=== PATIENT | female | born 1980 | race Caucasian/White ===

== ENCOUNTER 2016-04-25 16:34 | Observation (INO) | payer OTHER ==
[2016-04-25] MEDS ORDERED: VANCOMYCIN HCL/NORMAL SALINE 250 ML IV ONE (17:40)
--- NOTE | 2016-04-25 17:43 | EDPHY ---
H & P Stated Complaint: infected finger - Personal History LMP (Females 10-55): 8-14 Days Ago Current Tetanus/Diphtheria Vaccine: Yes Current Tetanus Diphtheria and Acellular Pertussis (TDAP): Yes - Medical/Surgical History Hx Asthma: No Hx Chronic Respiratory Disease: No Hx Diabetes: No Hx Cardiac Disease: No Hx Renal Disease: Yes Hx Cirrhosis: No Hx Alcoholism: No Hx HIV/AIDS: No Hx Splenectomy or Spleen Trauma: No Other PMH: HTN, L nephrectomy - Social History Smoking Status: Former smoker Time Seen by Provider: 04/25/16 17:30 HPI/ROS: CHIEF COMPLAINT: Possible infected finger HISTORY OF PRESENT ILLNESS: 36-year-old immunocompetent [id number] female with up-to-date complaining of 2 days of left middle digit pain, swelling. She notes a puncture wound of the distal phalanx of same digit. She went to urgent care and was told to come to the ER for further evaluation. She notes inability to flex, swelling, pain along the flexor aspect. No prior history of similar. No known history of MRSA or cutaneous infections. Denies: Fever, chills, nausea, vomiting, flu-like symptoms. Last oral intake was at 3:30 p.m. REVIEW OF SYSTEMS: A ten point review of systems was performed and is negative with the exception of the items mentioned in the HPI PAST MEDICAL & SURGICAL HISTORY: No pertinent medical or surgical history SOCIAL HISTORY: nonsmoker PHYSICAL EXAM (Prior to examination, patient consented to physical exam, hands were washed and my usual and customary physical exam procedures followed) 1) GENERAL: Well-developed, well-nourished, alert and oriented. Appears nontoxic . 2) HEAD: Normocephalic, atraumatic 3) HEENT: Sclera anicteric. 4) NECK: Full range of motion, no meningeal signs. 5) LUNGS: Clear auscultation bilaterally, no wheezes, no rhonchi, no retractions. 6) HEART: Regular rate and rhythm, no murmur, no heave, no gallop. 7) ABDOMEN: No guarding, no rebound, no focal tenderness, 8) MUSCULOSKELETAL: left upper extremity: Patient's left middle digit is swollen with fusiform shape, flexed, tender along flexor tendon sheath, pain with passive Flexion andextension. the distal phalanx there is a puncture wound the paronychial region. The hand has soft compartments with no crepitus and no lymphangitic streaking. 9) BACK: no visual or palpable abnormality. 10) SKIN: No rash, no petechiae. DIFFERENTIAL DIAGNOSIS: in no particular include but limited to osteomyelitis , cellulitis, infectious tenosynovitis (Robert Rodriguez) Constitutional: Initial Vital Signs Temperature (C) 36.6 C 04/25/16 16:36 Heart Rate 100 04/25/16 16:36 Respiratory Rate 16 04/25/16 16:36 Blood Pressure 110/80 04/25/16 16:36 O2 Sat (%) 96 04/25/16 16:36 O2 Delivery Mode Room Air Allergies/Adverse Reactions: No Known Allergies Allergy (Verified 04/25/16 18:59) Home Medications: Medication Instructions Recorded Cholecalciferol Vit D3 [Vitamin D3 1,000 units PO DAILY 04/25/16 (*)] Dextroamphetamine/Amphetamine 10 mg PO DAILY@16 04/25/16 [Dextroamp-Amphetamin 20 mg Tab] Dextroamphetamine/Amphetamine 20 mg PO DAILY 04/25/16 [Dextroamp-Amphetamin 20 mg Tab] Levonorgestrel-Ethin Estradiol 1 each PO DAILY 04/25/16 [Aviane] Lisinopril [Zestril 20 mg (*)] 20 mg PO DAILY 04/25/16 Sertraline HCl [Zoloft 100mg (*)] 100 mg PO DAILY 04/25/16 Medical Decision Making ED Course/Re-evaluation: 5:40 p.m.: This [id number] female has a left middle digit with positive kanavel sign, concern over infectious tenosynovitis. She is noted to have a puncture wound of the distal phalanx which may be the nidus of infection. The patient has also been seen exam by Dr. Floridalma Hancock in the ER. Hand surgery will be the paged, x-ray, IV antibiotics will be obtained. 6:43 p.m.: Phone consultation with Dr. Edward Bobby on-call hand surgery who will contact the operating room (Robert Rodriguez) Other Provider: I have evaluated and participated in the management of this patient. My co- signature indicates that I have reviewed this chart and that I agree with the findings and the plan of care as documented. My personal history and physical findings include: Pain and swelling of the left long finger that began yesterday. No known trauma. On examination there is a collection of purulence along the medial peritoneal fold. The entire left long digit is swollen, fusiform. There is tenderness with palpation of the flexor tendon sheath. She has pain with any attempt to flex or extend this digit. This appears to be an infectious tenosynovitis. She is being taken to the operating room by Dr. Bobby. (Floridalma Hancock) - Data Points Laboratory Results: Laboratory Results 04/25/16 18:00 04/25/16 18:00 04/25/16 18:00 WBC 14.06 H 10^3/uL (3.80-9.50) RBC 3.90 L 10^6/uL (4.18-5.33) Hgb 13.0 g/dL (12.6-16.3) Hct 36.2 L % (38.0-47.0) MCV 92.8 fL (81.5-99.8) MCH 33.3 pg (27.9-34.1) MCHC 35.9 g/dL (32.4-36.7) RDW 12.2 % (11.5-15.2) Plt Count 216 10^3/uL (150-400) MPV 9.2 fL (8.7-11.7) Neut % (Auto) 82.7 H % (39.3-74.2) Lymph % (Auto) 8.0 L % (15.0-45.0) [place]oll[place] % (Auto) 7.9 % (4.5-13.0) Eos % (Auto) 0.6 % (0.6-7.6) Baso % (Auto) 0.4 % (0.3-1.7) Nucleat RBC Rel Count 0.0 % (0.0-0.2) Absolute Neuts (auto) 11.61 H 10^3/uL (1.70-6.50) Absolute Lymphs (auto) 1.13 10^3/uL (1.00-3.00) Absolute Monos (auto) 1.11 H 10^3/uL (0.30-0.80) Absolute Eos (auto) 0.09 10^3/uL (0.03-0.40) Absolute Basos (auto) 0.06 10^3/uL (0.02-0.10) Absolute Nucleated RBC 0.00 10^3/uL (0-0.01) Immature Gran % 0.4 % (0.0-1.1) Immature Gran # 0.06 10^3/uL (0.00-0.10) Sodium 135 mEq/L (134-144) Potassium 4.2 mEq/L (3.5-5.2) Chloride 102 mEq/L (97-110) Carbon Dioxide 16 L mEq/l (22-31) Anion Gap 17 mEq/L (8-16) BUN 17 mg/dL (7-23) Creatinine 1.0 mg/dL (0.6-1.0) Estimated GFR > 60 Glucose 97 mg/dL (70-100) Calcium 9.2 mg/dL (8.5-10.4) Beta HCG, Qual NEGATIVE Medications Given: Discontinued Medications Vancomycin/Sodium Chloride (Vancomycin 1 Gm (Premix)) 250 mls @ 250 mls/hr IV EDNOW ONE PRN Reason: Protocol Stop: 04/25/16 18:39 Last Admin: 04/25/16 18:46 Dose: 250 mls Departure - Departure Disposition: [facility] Inpatient Acute Clinical Impression: Infectious tenosynovitis Condition: Fair
[2016-04-25 18:10] LABS: % IMMATURE GRANULYOCYTES 0.4 % (0.0-1.1); ABSOLUTE IMMATURE GRANULOCYTES 0.06 10^3/uL (0.00-0.10); ADD DIFF? NO; ADD MORPH? NO; ADD SCAN? NO; ATYPICAL LYMPHOCYTE FLAG 10 (0-99); FRAGMENT RBC FLAG 0 (0-99); HEMATOCRIT 36.2 % (38.0-47.0); LEFT SHIFT FLG 0 (0-99); LIPEMIA HEMOLYSIS FLAG 90 (0-99); MEAN CELL HEMOGLOBIN 33.3 pg (27.9-34.1); MEAN CELL HEMOGLOBIN CONCENTR. 35.9 g/dL (32.4-36.7); MEAN CELL VOLUME 92.8 fL (81.5-99.8); MEAN PLATELET VOLUME 9.2 fL (8.7-11.7); PLATELET CLUMPS FLAG 0 (0-99); PLATELET COUNT 216 10^3/uL (150-400); RED CELL DISTRIBUTION WIDTH 12.2 % (11.5-15.2)
[2016-04-25 18:27] LABS: ANION GAP 17 mEq/L (8-16); CALCIUM 9.2 mg/dL (8.5-10.4); CARBON DIOXIDE 16 mEq/l (22-31); CHLORIDE 102 mEq/L (97-110); GLOMERULAR FILTRATION RATE > 60; GLUCOSE 97 mg/dL (70-100); POTASSIUM 4.2 mEq/L (3.5-5.2); SODIUM 135 mEq/L (134-144)
--- NOTE | 2016-04-25 18:34 | DX ---
3 Views Left Hand Clinical Indications: Infection left 3rd digit for 2 days in a 36-year-old female. Comparison: No previous studies are available for comparison. Findings: A fracture or other acute osseous abnormality is not identified. The bone alignment is nor mal. Mild soft tissue swelling is noted involving the 3rd digit. No soft tissue air is seen and no ra diopaque foreign body is identified. Impression: Negative for acute osseous abnormality, soft tissue air or radiopaque foreign body.
[2016-04-25] MEDS ORDERED: ONDANSETRON 4 MG/2 ML VIAL ONE (19:42)
[2016-04-25] MEDS ORDERED: ROCURONIUM 50 MG/5 ML VIAL ONE (19:42)
[2016-04-25] MEDS ORDERED: LIDOCAINE 2% 5 ML SDV ONE (19:42)
[2016-04-25] MEDS ORDERED: DEXAMETHASONE 4 MG/ML VIAL ONE (19:42)
[2016-04-25] MEDS ORDERED: KETOROLAC 30 MG/1 ML SDV ONE (19:42)
[2016-04-25] MEDS ORDERED: PROPOFOL 200 MG/20 ML VIAL ONE (19:43)
[2016-04-25] MEDS ORDERED: fentaNYL 100 MCG/2 ML INJ ONE ×3 (19:43→21:48)
--- NOTE | 2016-04-25 19:46 | PDGENHP ---
History and Physical - Chief Complaint Left 3rd finger pain x 2 days - History of Present Illness 36y/o F presents to the ED c/o L 3rd finger pain x 2 days. Pt states she woke up yesterday morning with the tip of her 3rd finger swollen. The finger has continued to get more painful and swollen. Pt has trouble bending her 3rd finger. Pt states there is a small abrasion at the distal tip, but did not notice it before the finger became swollen. 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 Pt states she has [place] been [place] the [place] in about 1 week. Pt denies fever, chills, nausea, vomiting, drainage from the finger, numbness and tingling. History Information - Allergies/Home Medication List Allergies/Adverse Reactions: No Known Allergies Allergy (Verified 04/25/16 18:59) Home Medications: Cholecalciferol Vit D3 [Vitamin D3 (*)] 1,000 units PO DAILY 04/25/16 [Last Taken 04/25/16] Dextroamphetamine/Amphetamine [Dextroamp-Amphetamin 20 mg Tab] 10 mg PO DAILY@ 16 04/25/16 [Last Taken 04/25/16] Dextroamphetamine/Amphetamine [Dextroamp-Amphetamin 20 mg Tab] 20 mg PO DAILY [Last Taken 04/25/16] Levonorgestrel-Ethin Estradiol [Aviane] 1 each PO DAILY 04/25/16 [Last Taken ] Lisinopril [Zestril 20 mg (*)] 20 mg PO DAILY 04/25/16 [Last Taken 04/25/16] Sertraline HCl [Zoloft 100mg (*)] 100 mg PO DAILY 04/25/16 [Last Taken 04/25/16] I have personally reviewed and updated: family history, medical history, social history, surgical history - Surgical History Additional surgical history: Bilateral bunionectomy, 1 kidney removed at age 9 - Family History Positive for: CAD, hypertension - Social History Smoking Status: Former smoker Review of Systems ROS: 10pt was reviewed & negative except for what was stated in HPI & below Physical Exam Temp Pulse Resp BP Pulse Ox 36.6 C 100 16 110/80 96 04/25/16 16:36 04/25/16 16:36 04/25/16 16:36 04/25/16 16:36 04/25/16 16:36 Constitutional: no apparent distress, appears nourished Ears, Nose, Mouth, Throat: moist mucous membranes Skin: warm, erythema, other (Diffuse erythema of the L 3rd digit and edema; small abrasion with surrounding ecchymosis at the medial distal tip) Musculoskeletal: pain with ROM, other (Decreased flexion and strength of the L 3rd finger) Neurologic: AAOx3, sensation intact bilaterally, No numbness Psychiatric: interacting appropriately, anxious Lymph, Heme, Immunologic: no cervical LAD Lab Data & Imaging Review 04/25/16 18:00 04/25/16 18:00 WBC 14.06 10^3/uL (3.80-9.50) H 04/25/16 18:00 RBC 3.90 10^6/uL (4.18-5.33) L 04/25/16 18:00 Hgb 13.0 g/dL (12.6-16.3) 04/25/16 18:00 Hct 36.2 % (38.0-47.0) L 04/25/16 18:00 MCV 92.8 fL (81.5-99.8) 04/25/16 18:00 MCH 33.3 pg (27.9-34.1) 04/25/16 18:00 MCHC 35.9 g/dL (32.4-36.7) 04/25/16 18:00 RDW 12.2 % (11.5-15.2) 04/25/16 18:00 Plt Count 216 10^3/uL (150-400) 04/25/16 18:00 MPV 9.2 fL (8.7-11.7) 04/25/16 18:00 Neut % (Auto) 82.7 % (39.3-74.2) H 04/25/16 18:00 Lymph % (Auto) 8.0 % (15.0-45.0) L 04/25/16 18:00 [place] % (Auto) 7.9 % (4.5-13.0) 04/25/16 18:00 Eos % (Auto) 0.6 % (0.6-7.6) 04/25/16 18:00 Baso % (Auto) 0.4 % (0.3-1.7) 04/25/16 18:00 Nucleat RBC Rel Count 0.0 % (0.0-0.2) 04/25/16 18:00 Absolute Neuts (auto) 11.61 10^3/uL (1.70-6.50) H 04/25/16 18:00 Absolute Lymphs (auto) 1.13 10^3/uL (1.00-3.00) 04/25/16 18:00 Absolute Monos (auto) 1.11 10^3/uL (0.30-0.80) H 04/25/16 18:00 Absolute Eos (auto) 0.09 10^3/uL (0.03-0.40) 04/25/16 18:00 Absolute Basos (auto) 0.06 10^3/uL (0.02-0.10) 04/25/16 18:00 Absolute Nucleated RBC 0.00 10^3/uL (0-0.01) 04/25/16 18:00 Immature Gran % 0.4 % (0.0-1.1) 04/25/16 18:00 Immature Gran # 0.06 10^3/uL (0.00-0.10) 04/25/16 18:00 Sodium 135 mEq/L (134-144) 04/25/16 18:00 Potassium 4.2 mEq/L (3.5-5.2) 04/25/16 18:00 Chloride 102 mEq/L (97-110) 04/25/16 18:00 Carbon Dioxide 16 mEq/l (22-31) L 04/25/16 18:00 Anion Gap 17 mEq/L (8-16) 04/25/16 18:00 BUN 17 mg/dL (7-23) 04/25/16 18:00 Creatinine 1.0 mg/dL (0.6-1.0) 04/25/16 18:00 Estimated GFR > 60 04/25/16 18:00 Glucose 97 mg/dL (70-100) 04/25/16 18:00 Calcium 9.2 mg/dL (8.5-10.4) 04/25/16 18:00 Beta HCG, Qual NEGATIVE 04/25/16 18:00 Imaging Review: No signs of fracture, dislocation, or osteomyelitis Assessment & Plan Assessment: Infectious tenosynovitis (Acute) Plan: Pt will be taken to the OR for incision, drainage, and debridement of the left 3rd finger and tendon sheath. Pt will be admitted to orthopedics and infectious disease will be consulted for further antibiotic management.
[2016-04-25] MEDS ORDERED: ceFAZolin 2 GM/DEXTROSE 100 ML IV ONE (20:10)
[2016-04-25] MEDS ORDERED: MIDAZOLAM 2 MG/2 ML VIAL ONE ×2 (20:23→21:59)
[2016-04-25] MEDS ORDERED: SUCCINYLCHOLINE CHLORIDE*ANESTHESIA ONLY*200 MG/10 ML SYR IVP ONE (20:26)
[2016-04-25] MEDS ORDERED: ceFAZolin 1 GM VIAL ONE ×2 (20:52)
[2016-04-25] MEDS ORDERED: SUGAMMADEX SODIUM 200 MG/2 ML VIAL IVP ONE (20:57)
[2016-04-25] MEDS ORDERED: POLYMYXIN B SULFATE 500,000 UNIT/10 ML SYR IRR ONE (21:01)
[2016-04-25] MEDS ORDERED: BACITRACIN 50,000 UNITS/10 ML SYR IRR ONE (21:01)
[2016-04-25] MEDS ORDERED: EPINEPHrine RACEMIC INH 0.5 ML DEYVIAL IH ONE (21:56)
[2016-04-25] MEDS ORDERED: ceFAZolin 2 GM/DEXTROSE 100 ML IV SCH (22:00)
--- NOTE | 2016-04-25 22:02 | GOP ---
[f rep st] OPERATIVE REPORT DATE OF OPERATION: 04/25/2016 SURGEON: Edward Bobby MD DEAN OF INSTRUCTION: Sophie Saleem PA-C. ANESTHESIA: General. PREOPERATIVE DIAGNOSIS: 1. Left 3rd finger felon. 2. Left 3rd finger flexor tendon sheath abscess. POSTOPERATIVE DIAGNOSIS: 1. Left 3rd finger felon. 2. Left 3rd finger flexor tendon sheath abscess. PROCEDURE PERFORMED: 1. Incision and drainage of left 3rd finger felon. 2. Incision and drainage of left 3rd finger flexor tendon purulent tenosynovitis. FINDINGS: DESCRIPTION OF PROCEDURE: The patient was taken to the operating room, administered general anesthes ia, and placed in the supine position. The left upper extremity was prepped and draped in the normal sterile fashion. Esmarch was started at the wrist level and went up to the brachium. The brachial cuff was elevated to 225 mmHg pressure. An incision was made distally over the volar aspect of the i nterphalangeal joint in a Venancio fashion. This was carried through dermal subcutaneous tissues. Bl unt spreading was performed down to the level of the tendon sheath. An incision was then made at the palm level over the A1 terry. It was carried through the dermal and subcutaneous tissues. The ten don sheath was opened at both ends. Purulent fluid exuded. Cultures were taken. A pediatric feedin g tube was then fed down through the tendon sheath. Approximately 300 cc of bacitracin/polymyxin erasto ution was passed through the pediatric feeding tube to irrigate the tendon sheath. We subsequently i ncised the felon. We bluntly spread through the felon down to the level of the distal incision. Mor e purulent fluid exuded. This was thoroughly lavaged. We then placed a pediatric feeding tube throu gh the felon incision into the distal interphalangeal incision. This area was irrigated with copious amounts of normal saline. An iodoform gauze drain was placed into the incision in the distal finger tip and into the palmar area. We subsequently applied a sterile compression dressing and volar spli nt. The patient tolerated the procedure well and was transferred back to the recovery room in stable condition. No operative complications. COMPLICATIONS: None. /[id number]/MODL
[2016-04-25] MEDS ORDERED: ONDANSETRON DISINTEGRATING 4 MG TAB PO PRN (22:43)
[2016-04-25] MEDS ORDERED: ONDANSETRON 4 MG/2 ML VIAL IVP PRN (22:43)
[2016-04-25] MEDS ORDERED: CYCLOBENZAPRINE 10 MG TAB PO PRN (22:44)
[2016-04-25] MEDS ORDERED: DIPHENOXYLATE/ATROPINE LOMOTIL 1 TAB PO PRN (22:44)
[2016-04-25] MEDS ORDERED: PROMETHAZINE HCL 25 MG/ML VIAL IVP PRN (22:44)
[2016-04-25] MEDS ORDERED: diphenhydrAMINE 25 MG CAP PO PRN (22:44)
[2016-04-25] MEDS ORDERED: TEMAZEPAM 15 MG CAP PO PRN (22:44)
[2016-04-25] MEDS ORDERED: PROMETHAZINE HCL 25 MG SUPPR PR PRN (22:44)
[2016-04-25] MEDS ORDERED: NS 1,000 ML IV SCH (22:45)
[2016-04-26] MEDS: ACETAMINOPHEN 325 MG TAB PO SCH ×5 (00:05→23:37)
[2016-04-26] MEDS: FAMOTIDINE 20 MG TAB PO SCH ×3 (00:06→21:17)
[2016-04-26] MEDS: OXYCODONE/APAP 5/325 TAB PO PRN ×4 (05:51→23:33)
[2016-04-26] MEDS: ceFAZolin 2 GM/DEXTROSE 100 ML IV SCH ×3 (06:19→21:16)
[2016-04-26] MEDS: ADDERALL 20 MG TAB PO SCH (08:28)
[2016-04-26] MEDS: LISINOPRIL 20 MG TAB PO SCH (08:28)
[2016-04-26] MEDS: SERTRALINE HCL 100 MG TAB PO SCH (08:28)
[2016-04-26] MEDS: LEVONORGESTREL ETHIN ESTRADIOL PO SCH (08:33)
--- NOTE | 2016-04-26 09:43 | SOAPPROG ---
SOAP Progress Note Assessment/Plan: Assessment/Plan: 36y/o F s/p incision and drainage of the L 3rd finger felon and L 3rd finger tendon purulent tenosynovitis POD#1 - Iodoform gauze drain removed today - Continue pain management - SCDs in place while in bed - Continue to elevate and ice the LUE for pain and swelling - Will consult infectious disease for antibiotic recommendation as outpatient - Culture and gram stain still pending - Okay for discharge once plan is established with ID - Will need to follow-up with Dr. Bobby in clinic 10-14 days postoperatively 04/26/16 09:38 04/26/16 09:44 Subjective: Pt states her finger is in less pain this morning than pre-operatively. She has been keeping it elevated and iced with some relief. Pt has been up and out of bed. Pt denies fever, chills, chest pain, SOB, N/V, calf pain, numbness and tingling. Objective: VSS, afebrile, sitting up in bed Vital Signs Temp Pulse Resp BP Pulse Ox 36.3 C 75 15 107/62 94 04/26/16 07:22 04/26/16 07:22 04/26/16 07:22 04/26/16 07:22 04/26/16 08:29 Microbiology 04/25/16 21:10 Gram Stain - Final Finger - Anaerobic Tube/Swab 04/25/16 04/26/16 04/27/16 05:59 05:59 05:59 Intake Total 1650 300 Output Total 600 Balance 1050 300 Physical Exam - Physical Exam General Appearance: alert, no apparent distress Skin: normal color, warm/dry, other (Iodoform gauze drain intact; no increased erythema or streaking up the arm) Extremities: normal inspection, normal capillary refill, other (Splint in place LUE, L exposed fingertips warm and well perfused, able to move fingers well), No pedal edema, No calf tenderness, No swelling, No Angie's sign ICD10 Worksheet Patient Problems: Problems Problem Status Diagnosed Infectious tenosynovitis Acute
[2016-04-26] MEDS: ADDERALL 10 MG TAB PO SCH (14:49)
[2016-04-26] MEDS ORDERED: ALTEPLASE 2 MG VIAL IVP PRN (15:52)
[2016-04-26] MEDS ORDERED: ADDERALL 20 MG TAB PO SCH (16:00)
--- NOTE | 2016-04-27 03:06 | GCON ---
[f rep st] CONSULTATION REFERRING PHYSICIAN: Edward Bobby MD REASON FOR REFERRAL: Left 3rd finger tenosynovitis and cellulitis. HISTORY OF PRESENT ILLNESS: Patient is a 36-year-old female who complained of left 3rd finger pain f or a duration of 2 days when she presented to the emergency room. 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 However, she woke up the day prior to presentatio n with the distal tip of her 3rd finger swollen. This discomfort continued to increase over the 2 da ys prior to presentation. Ultimately, she had trouble with any sort of flexion of her 3rd finger. T he patient denied any fevers, chills, or drainage from the finger upon presentation. She was seen by Orthopedic Surgery and taken for incision and drainage yesterday. During surgery, it was noted that the flexor tendon sheath of the left 3rd digit had significant purulent material inside. This was v yasmany completely evacuated and washed out. She states that her finger feels much improved since surger y yesterday. The patient was placed on intravenous cefazolin empirically. She is tolerating this me dication well. She has no complaints. She denies rash or diarrhea. PAST MEDICAL HISTORY: 1. Anxiety. 2. 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 This resulted in some childhood hypertension, whi ch was significantly alleviated with kidney removal at a young age. PAST SURGICAL HISTORY: 1. Status post nephrectomy at age 9. 2. Status post bilateral bunionectomies. ANTIBIOTICS: Cefazolin. ALLERGIES: Patient has no known medical allergies. SOCIAL HISTORY: The patient has a previous history of tobacco use, none currently. No significant a lcohol or drug use. FAMILY HISTORY: Noncontributory to problem. REVIEW OF SYSTEMS: Other than that detailed above in History of Present Illness, comprehensive 10-sy stem review is negative. PHYSICAL EXAMINATION: VITAL SIGNS: Temperature 36.6, heart rate 85, respiratory rate 16, blood pres sure 110/80. GENERAL: The patient is a well-formed, well-nourished female in no acute distress. Sh e is not toxic in appearance. She is alert and oriented x3. She is in a pleasant demeanor. HEENT: Normocephalic for age, atraumatic. No scleral icterus. No oral lesion. No drainage from the nares . LUNGS: Clear to auscultation bilaterally with good effort. HEART: Regular rate and rhythm. No murmur, rub, or gallop noted. No significant peripheral edema. SKIN: Warm and dry to the touch. N o rash or lesion noted. The patient's left upper extremity is postoperative. The 3rd digit is heavi ly wrapped. MUSCULOSKELETAL: No muscle tenderness is noted. No joint enlargement, inflammation, or effusion noted. NEURO: Cranial nerves 2 through 12 seem to be intact. Peripheral sensation is int act in all extremities. LABORATORY DATA: Patient has a CBC dated 04/25/2016, that shows a white blood cell count of 14.06, h emoglobin 13.0, hematocrit 36.2, and platelet count of 216. Differential is left-shifted with 83% se gmented neutrophils. Serum chemistries also on 04/25/2016, show sodium of 135, potassium of 4.2, chl oride of 102, bicarbonate of 16, BUN of 17, and creatinine of 1.0. MICROBIOLOGIC DATA: The patient has operative cultures dated 04/25/2016. Gram stain is negative for organisms. Cultures are pending. ASSESSMENT: Left 3rd finger felon with flexor tendon tenosynovitis. Status post incision and draina ge. Cultures are pending. Hopefully, we will be able to confirm that cefazolin is appropriate for c overage. Either way, I think with the flexor tendon sheath involved 2 to 4 weeks' duration of therap y is required. I would not feel comfortable with this not being intravenous. Therefore, we will con tinue the intravenous cefazolin and plan for that to be the discharge drug, unless early results from the incubation of the operative culture pushes us in a different direction. We will have a PICC tiera e inserted either later today or tomorrow morning. Will fill out her interagency form for home IV an tibiotics and discharge for tomorrow. PLAN: 1. Continue intravenous cefazolin. 2. PICC line insertion. 3. Arrange for home IV antibiotics for discharge in the morning. 4. Follow culture results. /[id number]/MODL
[2016-04-27] MEDS: OXYCODONE/APAP 5/325 TAB PO PRN ×3 (05:51→17:20)
[2016-04-27] MEDS: ceFAZolin 2 GM/DEXTROSE 100 ML IV SCH ×2 (05:52→13:36)
[2016-04-27] MEDS: ACETAMINOPHEN 325 MG TAB PO SCH ×2 (05:52→12:24)
--- NOTE | 2016-04-27 07:47 | SOAPPROG ---
SOAP Progress Note Assessment/Plan: Assessment/Plan: 36y/o F s/p incision and drainage of the L 3rd finger felon and L 3rd finger flexor tendon sheath purulent tenosynovitis POD#2 - Continue pain management - Continue to elevate and ice the LUE for pain and swelling - Culture still pending - Okay for discharge this morning once PICC line is placed; will continue IV antibiotics from an outpatient setting - Will need to follow-up with Dr. Bobby in clinic on 04/30/2016, for wound check and dressing change 04/26/16 09:38 04/26/16 09:44 04/27/16 07:44 Subjective: 36y/o F s/p incision and drainage of the L 3rd finger felon and L 3rd finger flexor tendon sheath purulent tenosynovitis POD#2; pt states she is feeling well this morning, and her pain improves with elevation of the L hand. Pt denies fever, chills, chest pain, SOB, N/V, calf pain, numbness and tingling. Objective: VSS, afebrile, culture still pending Vital Signs Temp Pulse Resp BP Pulse Ox 36.6 C 76 18 116/83 H 94 04/27/16 05:47 04/27/16 05:47 04/27/16 05:47 04/27/16 05:47 04/27/16 05:47 Microbiology 04/25/16 21:10 Gram Stain - Final Finger - Anaerobic Tube/Swab 04/26/16 04/27/16 04/28/16 05:59 05:59 05:59 Intake Total 1650 2430 Output Total 600 900 Balance 1050 1530 Physical Exam - Physical Exam General Appearance: alert, no apparent distress Skin: normal color, warm/dry, other (Splint and dressing intact LUE) Extremities: normal range of motion, normal capillary refill, No pedal edema, No calf tenderness, No swelling, No Angie's sign Neuro/Psych: no motor/sensory deficits, alert, normal mood/affect ICD10 Worksheet Patient Problems: Problems Problem Status Diagnosed Infectious tenosynovitis Acute
[2016-04-27 09:09] VITALS: RESP 16
[2016-04-27] MEDS: SERTRALINE HCL 100 MG TAB PO SCH (09:20)
[2016-04-27] MEDS: ADDERALL 20 MG TAB PO SCH (09:20)
[2016-04-27] MEDS: FAMOTIDINE 20 MG TAB PO SCH (09:20)
[2016-04-27] MEDS: LISINOPRIL 20 MG TAB PO SCH (09:20)
[2016-04-27] MEDS: LEVONORGESTREL ETHIN ESTRADIOL PO SCH (09:50)
[2016-04-27 13:27] VITALS: BP 129/91; PULSE 80; TEMP 98.1; O2SAT 94
--- NOTE | 2016-04-27 13:58 | PCMIDPN ---
Assessment/Plan: Assessment/Plan: 1. Infectious tenosynovitis/cellulitis involving left 3rd finger.: - s/p I & D. - cx with no org on GS, and ngtd on cx preliminarily -currently on ancef -blood cx ngtd -s/p picc line -filled out interagency. spoke with [facility]mer to coordinate care -will set up f/u with Dr. Jolley this tuesday - side effects of therapy discussed with patient. meds ancef 2g q8- Subjective: Afebrile. feels ok. s/p picc line. denies sob, abd pain or diarrhea. toelrating ancef. still in operative dressing. Per patient, this is to be changed on tuesday. Objective: Vital Signs Temp Pulse Resp BP Pulse Ox 36.7 C 80 16 129/91 H 94 04/27/16 13:24 04/27/16 13:24 04/27/16 09:06 04/27/16 13:24 04/27/16 13:24 Microbiology 04/25/16 21:10 Gram Stain - Final Finger - Anaerobic Tube/Swab 04/26/16 04/27/16 04/28/16 05:59 05:59 05:59 Intake Total 1650 2430 Output Total 600 900 Balance 1050 1530 - Physical Exam General Appearance: alert, no apparent distress Respiratory: lungs clear Cardiac/Chest: regular rate, rhythm Extremities: No swelling Abdomen: non-tender, soft, No distended Skin: other (LUE dressed in operative dressings) - Time Spent With Patient Time Spent with Patient: greater than 35 minutes Time Spent with Patient: Greater than 35 minutes spent on this patients care, greater than 50% of time spent counseling, educating, and coordinating care regarding the above mentioned plan. ICD10 Worksheet Patient Problems: Problems Problem Status Diagnosed Infectious tenosynovitis Acute
--- NOTE | 2016-04-27 14:03 | PDIAF ---
- Diagnosis Diagnosis: INfectious tenosynovitis/cellulitis involving 3rd left finger - Medication Management Discharge Medications: Medications to Continue on Transfer Cholecalciferol Vit D3 [Vitamin D3 (*)] 1,000 units PO DAILY 04/25/16 [Last Taken 04/25/16] oxyCODONE/APAP 5/325 [Percocet 5/325 (*)] 1 - 2 tab PO Q4HRS PRN #30 tab [Last Taken Unknown] Alteplase [Cathflo Activase 2 mg (*)] 2 mg IVP PRN PRN #0 vial 04/27/16 [Last Taken Unknown] Amphet Asp and D/Amphet [Adderall 10 MG (*)] 10 mg PO DAILY@1600 #0 tab [Last Taken Unknown] Amphet Asp and D/Amphet [Adderall 20 mg (*)] 20 mg PO DAILY #0 tab 04/27/16 [ Last Taken Unknown] Levonorgestrel-Ethin Estradiol [Aviane-28 Tablet] 0 each PO DAILY 04/27/16 [ Last Taken Unknown] Lisinopril [Zestril 20 mg (*)] 20 mg PO DAILY #0 tab 04/27/16 [Last Taken Unknown] Sertraline HCl [Zoloft 100mg (*)] 100 mg PO DAILY #0 tab 04/27/16 [Last Taken Unknown] [employer] Antibiotics: ancef 6g iv over 24 hours continuous infusion [employer] Antibiotic Stop Date: 05/17/16 Discharge Medications: Refer to the Discharge Home Medication list for PRN reason. PICC Care - Routine: Yes - Orders Diet Recommendation: no restrictions on diet Diet Texture: Regular Texture Diet - Labs/Radiology CBC Date: 05/03/16 (q mondays) CMP Date: 05/03/16 (q mondays) Call or Fax Lab and Imaging Results to: fax to Dr. [phone] - Follow Up Care Current Providers and Referrals: [place],. [Primary Care Provider] - As per Instructions Edward Bobby MD [Medical Doctor] - (Follow-up in clinic on 04/30/2016; call the office to schedule this appointment. ) Gabriel Jolley MD [Medical Doctor] - (f/u Dr. Jolley on 04/30/16--office will call you for an appointment time)
[2016-04-27] MEDS: ADDERALL 10 MG TAB PO SCH (14:55)
--- NOTE | 2016-04-27 14:55 | PDDCSUM ---
Discharge Summary Discharge Summary: 36y/o F presented to the ED c/o left 3rd finger pain and swelling x 2 days. Pt was evaluated and orthopedics was consulted. Pt was taken to the OR for incision and drainage of the L 3rd finger felon and L 3rd finger flexor tendon sheath for tenosynovitis. Pt was given one dose of Vancomycin in the ED. Cultures and gram stain were obtained in the OR; preliminary results show no growth. Pt was placed on Ancef after surgery. Infectious disease was consulted and advised pt continue IV antibiotics, Ancef, as an outpatient. A PICC line was placed before discharge. Pt will follow-up as directed with orthopedics and infectious disease as outpatient. Hospital course was otherwise uneventful.
--- NOTE | 2016-04-27 17:18 | IR ---
Imaging-Guided Peripherally Inserted Central Catheter History: Central line access for home antibiotics. Prophylactic Antibiotic: Cefazolin was not ordered and administered for antimicrobial prophylaxis be cause it was not medically necessary for this procedure. VTE Prophylaxis: There is not an order for VTE prophylaxis to be given within 24 hours after procedu re end time because it was not medically necessary for this procedure. Crosscutting Measure: Patient's current list of medications including all known prescriptions, over- the-counters, herbals, and vitamin/mineral/dietary supplements are reviewed. Medications' name, dosa ge, frequency, and route of administration are confirmed. Technique: Following informed consent, the right arm was prepped and draped in sterile fashion. 1% Xy locaine was used for local anesthetic. All elements of maximal sterile barrier technique including cap, mask, sterile gown, sterile gloves, large sterile sheet, hand hygiene, and 2% chlorhexidine for cutaneous antisepsis, followed. Ultrasound evaluation of potential access site was performed. After successfully identifying a patent vessel, ultrasound guidance was used to puncture the vein. A permanent recording was created for the patient's record. Ultrasound transducer was placed in sterile sleeve and used for real-time imaging guidance over steri le gel to enter the basilic vein. 0.018 measuring wire was passed centrally under fluoroscopic contro l. A skin jai with scalpel blade was followed by removing the access needle. 42 cm length.>] The ti p of the catheter was positioned centrally and the guidewire removed. A single fluoroscopic spot imag e was obtained in inspiration. The hub of the catheter was fixed to the skin using a sterile StatLock adhesive device, and a sterile dressing was applied. The catheter was irrigated. Findings: The tip of the central catheter terminates at the junction of the superior vena cava and th e right atrium. Fluoroscopy: 0.1 minutes, 1 images Impression: 4 [place] single lumen peripherally inserted central catheter is ready to use.
== END 2016-04-27 18:25 | disposition home or self-care (01) ==
LOC: INTOOBSV 18:44 → F3N 23:04
PROVIDERS: ADMIT Orthopaedic Surgery Sports Medicine; ATTEND Orthopaedic Surgery Sports Medicine
DX: M65.142 Other infective (teno)synovitis, left hand (principal); L03.012 Cellulitis of left finger; I10 Essential (primary) hypertension; Z90.5 Acquired absence of kidney; Z87.891 Personal history of nicotine dependence
CPT/HCPCS: 10060; 26020; 73130; 77001; 96365; 99285; C1751; G0378; J0330; J0690; J1100; J1885; J2250; J2405; J2704; J3010; J3370